=== PATIENT | female | born 1955 | race Caucasian/White ===

== ENCOUNTER 2021-12-14 11:56 | Emergency (ER) | payer MEDICARE, SELFPAY ==
[2021-12-14 12:00] VITALS: BP 135/60; PULSE 65; RESP 20; TEMP 36.3; O2SAT 99
--- NOTE | 2021-12-14 12:30 | DI.CT_ITS ---
Exam(s) CT HEAD WO EXAM: CT HEAD WO CLINICAL HISTORY: fall, hit head, on eliquis. TECHNIQUE: Imaging Protocol: Axial computed tomography images with coronal and sagittal reformatted images were created and reviewed COMPARISON: No exams were available for comparison FINDINGS: Ventricles and Extra axial spaces: Normal in size and morphology for the patient's age. Hemorrhage: None. Cerebral parenchyma: Normal. Midline shift: None. Brainstem/Cerebellum: Normal. Calvarium: Normal. Visualized Paranasal sinuses/Mastoids: Mild ethmoid sinus disease. Soft Tissues: Unremarkable. IMPRESSION: No acute intracranial process. RADIATION DOSE DELIVERED: 771.66mGy.cm Total DLP DATA REPOSITORY: All CT scans at this facility are submitted to the National Radiology Data Registry (NRDR) Dose Index Registry (DIR) with the [employer] ([employer]). RADIATION OPTIMIZATION: All CT scans at this facility use at least one of these dose optimization te chniques: automated exposure control; mA and/or kV adjustment per patient size (includes targeted exa ms where dose is matched to clinical indication); or iterative reconstruction.
--- NOTE | 2021-12-14 12:30 | DI.RAD_ITS ---
Exam(s) XR SHOULDER RT COMPLETE 2+V EXAM: XR SHOULDER RT COMPLETE 2+V CLINICAL HISTORY: fall/pain. TECHNIQUE: 2D digital imaging was performed. Five views. COMPARISON: CR RIGHT SHOULDER COMPLETE from 08/26/2010 FINDINGS: BONES: No acute fracture is present. No bony destructive lesion is seen. Sternal wires. JOINTS: No dislocation present. Prominent spurring AC joint and undersurface of the acromion. Degen erative changes of the glenohumeral joint. SOFT TISSUE: Normal. IMPRESSION: Degenerative changes. DATA REPOSITORY: RADIATION DOSE DELIVERED:
[2021-12-14] MEDS: HYDROcodone 5/Acetaminophen 325 TAB PO (12:40)
--- NOTE | 2021-12-14 13:15 | ED.GENADUL_ITS ---
Discharge Plan Disposition Patient Disposition: HOME Condition: Stable Discharge Details Clinical Impression: Right shoulder pain, Fall, Head injury Primary Care Provider: Emely Grayson ED Provider: Steven Martinez Home Meds and New Rx's Prescriptions: Continued metoprolol succinate 200 mg Tablet Extended Release 24 Hr 200 mg PO DAILY insulin aspart U-100 [Novolog Flexpen U-100 Insulin] 100 unit/mL (3 mL) Insulin Pen 1 unit SUBCUT PRN PRN hydrocodone-acetaminophen 10-300 mg Tablet 1 tab PRN PRN insulin glargine 100 unit/mL Cartridge 42 unit SUBCUT BID vit D3-vit A-yyohnvdyg-idom [id number] ohcb-omy-sz-mg Tablet 1 tab PO DAILY loratadine 10 mg Capsule 10 mg DAILY Eliquis 5 mg Tablet 5 mg BID Discharge Instructions Instructions: Head Injury (ED), Fall Prevention (ED), Shoulder Pain (ED) Additional Instructions: X-ray and CT are both unremarkable. Take your at home already prescribed hydrocodone, remember this medication may cause drowsiness and/or constipation. You may want to use [id number]-azr-srgxbyg stool softener while taking this medication. Wear sling as needed, advance activity as tolerated, be sure to do passive range of motion at least 4 times daily to avoid a frozen shoulder. Cool and/or warm compresses every 2 hours for 20 minutes. Please watch for new or worsening symptoms and return to the ER for any concerns. I recommend contacting the orthopedic team on Friday if conservative measures are not improving your shoulder. Otherwise contact your primary care provider for prompt outpatient follow-up. Referrals: Wayne Devries MD [ [facility] STAFF PHYSICIAN] - Medical Decision Making This is a 66-year-old female, takes Eliquis daily, presents for evaluation status post mechanical slip and fall when the wheel from her walker broke. She fell from the sitting position down onto her right shoulder and struck her head along the foot railing of the truck. She denies any LOC, headache, visual changes, posterior neck pain. She denies any symptoms prior to the fall. She denies any chest pain, shortness of breath, incontinence, numbness, tingling, weakness, nausea or vomiting. Patient states that she is right-hand dominant. Plan is to obtain a right shoulder x-ray as well as a head CT. Patient will be given a single hydrocodone. Tetanus status is updated. Will clean and dress the right elbow abrasion. Head CT and right shoulder x-ray read by radiology as no acute process. Discussed x-ray results with patient. Will place into a sling and we discussed the importance of passive range of motion. She has a prescription for hydrocodone at home. We will provide orthopedic referral. Standard discharge and return precautions were provided. Patient understands, is agreeable to this plan, and has no additional questions or concerns upon discharge. This documentation was generated using [employer] system, please disregard any oddities of phrase or misspellings. Medical Records Medical records reviewed: Yes I reviewed the patient's medical records. Imaging Data Radiologic Study: Attestation: I personally reviewed and interpreted this imaging study as mohinder rocha: Imaging: CT Scan Radiologist's impression: This report is currently processing and HAS NOT BEEN OFFICIALLY SIGNED BY THE PHYSICIAN - ESTIMATED TIME OF APPROVAL IS 12/14/2021 13:28. Exam(s) CT HEAD WO EXAM: CT HEAD WO CLINICAL HISTORY: fall, hit head, on eliquis. TECHNIQUE: Imaging Protocol: Axial computed tomography images with coronal and sagittal reformatted images were created and reviewed COMPARISON: No exams were available for comparison FINDINGS: Ventricles and Extra axial spaces: Normal in size and morphology for the patient's age. Hemorrhage: None. Cerebral parenchyma: Normal. Midline shift: None. Brainstem/Cerebellum: Normal. Calvarium: Normal. Visualized Paranasal sinuses/Mastoids: Mild ethmoid sinus disease. Soft Tissues: Unremarkable. IMPRESSION: No acute intracranial process. Radiologic Study #2: Attestation: I personally reviewed and interpreted this imaging study as follows: Imaging: X-Ray Radiologist's impression: This report is currently processing and HAS NOT BEEN OFFICIALLY SIGNED BY THE PHYSICIAN - ESTIMATED TIME OF APPROVAL IS 12/14/2021 13:36. Exam(s) XR SHOULDER RT COMPLETE 2+V EXAM: XR SHOULDER RT COMPLETE 2+V CLINICAL HISTORY: fall/pain. TECHNIQUE: 2D digital imaging was performed. Five views. COMPARISON: CR RIGHT SHOULDER COMPLETE from 08/26/2010 FINDINGS: BONES: No acute fracture is present. No bony destructive lesion is seen. Sternal wires. JOINTS: No dislocation present. Prominent spurring AC joint and undersurface of the acromion. Degenerative changes of the glenohumeral joint. SOFT TISSUE: Normal. IMPRESSION: Degenerative changes. HPI General Mode of arrival: EMS . Date/Time Provider Initiated Documentation: 12/14/21 12:13 . Limitations to Documentation: no limitations . Information obtained by: patient and EMS . History of Present Illness 66 year old F presents to the emergency department with the chief complaint of fall, R shoulder injury, hit head, described as severe, with intensity rated at 8. Quality is described as aching, and is localized to the right and upper extremity. Patient reports no radiation. Patient started experiencing this hour(s) (1) and it has been constant. Immobilization improves symptom(s), Immoblization worsens symptoms . Patient notes no other symptoms.. Patient did receive the following treatments prior to arrival, none Related Data Home Medications Medication Instructions Recorded Confirmed apixaban 5 mg tablet (Eliquis) 5 mg BID 12/14/21 12/14/21 hydrocodone 10 mg-acetaminophen 1 tab PRN PRN 12/14/21 12/14/21 300 mg tablet insulin aspart U-100 100 unit/mL 1 unit subcut PRN PRN 12/14/21 12/14/21 (3 mL) subcutaneous pen (Novolog Flexpen U-100 Insulin aspart) insulin glargine 100 unit/mL 42 unit subcut BID 12/14/21 12/14/21 subcutaneous cartridge loratadine 10 mg capsule 10 mg DAILY 12/14/21 12/14/21 metoprolol succinate 200 mg 200 mg PO DAILY 12/14/21 12/14/21 tablet,extended release 24 hr vitamin D3 500 unit-vit K 500 1 tab PO DAILY 12/14/21 12/14/21 mcg-berberine 90 mg-hops 370 mg tablet Allergies Allergy/AdvReac Type Severity Reaction Status Date / Time No Known Allergies Allergy Unverified 12/14/21 14:26 General Stated Complaint: Orthopedic GABE: 3 Review of Systems Constitutional Constitutional: Denies fever(s), Denies headache(s) and Denies weakness ENT Ears, Nose, Mouth, and Throat: Denies headache(s) and Denies neck pain Comments: Patient reports she did at 1 point had some mild right-sided neck pain, resolved Cardiovascular Cardiovascular: Denies chest pain and Denies dyspnea Respiratory Respiratory: Denies cough and Denies dyspnea Gastrointestinal Gastrointestinal: Denies abdominal pain, Denies nausea and Denies vomiting Musculoskeletal Musculoskeletal: Denies back pain, Denies deformity, Denies neck pain, Denies numbness, Reports stiffness and Denies tingling Integumentary/Breasts Skin/Breast: Denies rash Neurologic Neurologic: Denies headache(s), Denies numbness, Denies tingling and Denies weakness Hematologic/Lymphatic Hematologic/Lymphatic: Reports easy bleeding and Reports easy bruising PFSH All Active Problems Right shoulder pain (Acute) Fall (Acute) Head injury (Acute) Social History Smoking/Tobacco Use Status: Never Smoking risk assessment performed?: Yes Alcohol Intake: never Substance use type: does not use Exam Const General: cooperative, healthy appearing, comfortable and no acute distress Orientation: alert, awake and oriented x3 HENMT Head: normal to inspection, normocephalic and atraumatic Face and sinus: normal facial exam Mouth: moist mucous membranes Eyes General: appearance normal, both eyes and all related structures Conjunctivae: conjunctivae normal Neck Neck: normal visual inspection, full ROM, trachea midline, supple and nontender Chest Chest: normal inspection of the chest and normal palpation of entire chest wall Resp Effort & Inspection: normal respiratory effort and able to speak in complete sentences Auscultation: clear to auscultation bilaterally Cardio Rate: regular rate Rhythm: regular rhythm GI Palpation: soft and nontender Back/Spine/Pelvis Back: No back tenderness Skin General skin exam: no rashes or lesions noted Neuro General: patient alert, patient awake, patient oriented x3, moves all extremities and no focal motor deficits Cognition: normal cognition Speech: speech normal Gait: normal gait Motor: muscle tone normal throughout Sensory Exam: no sensory deficits noted Extrem General: capillary refill normal and no calf tenderness Other: Right posterior elbow with an abrasion, no active bleeding or bony point tenderness. 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 Right shoulder-arm held in adduction. There is diffuse anterior and superior shoulder discomfort without any obvious ecchymosis, deformity, bony point tenderness. Neuro, vascular, tendon intact. Psych Appearance: grossly normal Mental Status: mental status grossly normal Course Vital Signs Vital signs: Vital Signs Temperature 36.3 C L 12/14/21 12:00 Pulse 65 12/14/21 12:00 Respiratory Rate 20 12/14/21 12:00 Blood Pressure 135/60 12/14/21 12:00 Pulse Oximetry 99 12/14/21 12:00 Temperature 36.3 C L 12/14/21 12:00 Temperature Source Skin 12/14/21 12:00 Pulse 65 12/14/21 12:00 Respiratory Rate 20 12/14/21 12:00 Respiratory Effort 12/14/21 12:10 Blood Pressure 135/60 12/14/21 12:00 Blood Pressure Position Sitting 12/14/21 12:00 Pulse Oximetry 99 12/14/21 12:00 Oxygen Delivery Method Room Air 12/14/21 12:00 Oxygen Flow Rate 0 12/14/21 12:00 Pain Level 8 12/14/21 12:00
== END 2021-12-14 15:56 | disposition home or self-care (01) ==
LOC: ER 15:56
PROVIDERS: Emergency Provider Physician Assistant; PCP Family Medicine
DX: M25.511 Pain in right shoulder (principal); S09.8XXA Other specified injuries of head, initial encounter; W18.39XA Other fall on same level, initial encounter; Z79.01 Long term (current) use of anticoagulants
CPT/HCPCS: 90471; 99284; 70450; 73030; 99283

== ENCOUNTER 2025-05-09 19:58 | Emergency (ER) | payer MEDICARE, SELFPAY ==
[2025-05-09 19:59] VITALS: BP 122/77; PULSE 95; RESP 18; TEMP 36.9; O2SAT 95
--- NOTE | 2025-05-09 20:12 | NUR.NOTE ---
Nursing Note: Friday was bitten by personal dog. 3 sutures placed, Was told to change dressing every other day. Increased pain, warmth, and swelling to left hand. 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
--- NOTE | 2025-05-09 20:15 | DI.RAD_ITS ---
Exam(s) XR WRIST LT COMPLETE EXAM: XR WRIST LT COMPLETE CLINICAL HISTORY: infected dog bite. TECHNIQUE: 2D digital imaging was performed of the left wrist. Four images were obtained. PA, oblique and lateral views were obtained. COMPARISON: No exams were available for comparison FINDINGS: BONES: No acute fracture is present. No bony destructive lesion is seen. Bones are osteopenic. JOINTS: The carpal bones are normally aligned. There are marked degenerative changes seen at the 1st CMC joint characterized by joint space narrowing and osteophytes. SOFT TISSUE: There is no soft tissue gas. There is chondrocalcinosis seen in the region of the TFCC. IMPRESSION: 1. No radiographic evidence to suggest osteomyelitis. 2. There is no acute fracture or dislocation. 3. The preliminary [facility] report was reviewed. DATA REPOSITORY: RADIATION DOSE DELIVERED:
[2025-05-09 20:48] LABS: Abs Immature Grans 0.11 10^3/uL (0.0-0.06); HCT 42.0 % (36.0-46.0); HGB 13.8 g/dL (11.2-15.7); Immature Grans % 1.0 %; MCH 30.1 pg (27.0-33.0); MCHC 32.9 % (32.0-36.0); MCV 92 fL (80-95); MPV 10.9 fL (8.0-11.0); Platelet Count 203 10^3/uL (130-400); RBC 4.59 10^6/uL (3.93-5.22); RDW 14.8 % (11.7-14.6); RDW-SD 48.8 fL; WBC 11.34 10^3/uL (4.4-10.8)
[2025-05-09 20:49] LABS: ESR 76 mm/hr (0-30)
[2025-05-09 21:03] LABS: ALT 16 U/L (14-59); AST 12 U/L (15-37); Albumin 3.2 g/dL (3.4-5.0); Alkaline Phosphatase 154 U/L (46-116); Anion Gap 23.2 mmol/L (3-11); BUN 22 mg/dL (7-18); Bilirubin, Total 1.0 mg/dL (0.2-1.0); C-Reactive Protein 7.29 mg/dL (<or=0.5); CO2 18.8 mmol/L (21.0-32.0); Calcium 9.4 mg/dL (8.5-10.1); Chloride 95 mmol/L (98-107); Estimated GFR 69.20 (mL/min/1.73m2); Glucose 298 mg/dL (74-106); Magnesium 2.3 mg/dL (1.8-2.4); Potassium 4.6 mmol/L (3.5-5.1); Sodium 137 mmol/L (136-145); Total Protein 8.0 g/dL (6.4-8.2)
[2025-05-09] MEDS: AMPICILLIN/SULBACTAM 3 GM in Normal Saline 100 ML IVPB (21:07)
[2025-05-09] MEDS: Acetaminophen 325 MG TAB PO (21:07)
[2025-05-09] MEDS: HYDROcodone 5/Acetaminophen 325 TAB PO (21:07)
--- NOTE | 2025-05-09 21:35 | W.ED.GENAD ---
Discharge Plan Disposition Patient Disposition: Home Condition: Stable Discharge Details Clinical Impression: Infected dog bite of forearm Primary Care Provider: Jennyfer Santos ED Provider: Corrine Gan Home Meds and New Rx's Prescriptions: New amoxicillin-pot clavulanate 875-125 mg tablet 1 tab PO BID 5 Days Qty: 10 0RF No Action guaifenesin [Mucinex] 600 mg tablet extended release 12hr 600 mg PO BID hydrocodone-acetaminophen 10-300 mg tablet 1 tab PO QID PRN insulin aspart U-100 [Novolog FlexPen U-100 Insulin] 100 unit/mL (3 mL) insulin pen 8 - 22 unit SUBCUT .sliding scale metoprolol succinate 200 mg tablet extended release 24 hr 100 mg PO DAILY fluticasone propion-salmeterol [Advair HFA] 230-21 mcg/actuation HFA aerosol inhaler 2 puff inhalation Q12H albuterol sulfate 2.5 mg /3 mL (0.083 %) solution for nebulization 2.5 mg inhalation Q6H PRN cholecalciferol (vitamin D3) 1,250 mcg (50,000 unit) capsule 1,250 mcg PO .twice a week clotrimazole 1 % cream 1 applic topical BID PRN multivitamin [One Daily Multivitamin] Tablet 1 tab PO DAILY ezetimibe 10 mg tablet 10 mg PO DAILY fluconazole 150 mg tablet 150 mg PO .once weekly ipratropium-albuterol 0.5 mg-3 mg(2.5 mg base)/3 mL solution for nebulization 3 ml inhalation QID Jardiance 25 mg tablet 25 mg PO DAILY magnesium L-lactate 84 mg tablet extended release 84 mg PO BID nitroglycerin 0.4 mg tablet, sublingual 0.4 mg sublingual Q5M PRN Rx Instructions: do not exceed 3 doses per episode albuterol sulfate [Ventolin HFA] 90 mcg/actuation HFA aerosol inhaler 1 - 2 puff inhalation QID PRN fluticasone propionate 50 mcg/actuation spray,suspension 1 spray intranasal DAILY PRN Rx Instructions: administer into each nostril furosemide 20 mg tablet 40 mg PO DAILY PRN Eliquis 5 mg Tablet 5 mg BID insulin glargine 100 unit/mL cartridge 42 unit SUBCUT BID Discharge Instructions Instructions: Wound Infection Additional Instructions: You were seen in the emergency department today for evaluation of an infection and the dog bite that you sustained a few days ago. In our department you do full physical examination performed, had laboratory studies were fairly reassuring, though your inflammatory markers are elevated which is consistent with infection. Your x-ray did not show any concerning findings though you do have some osteoarthritis of your thumb. You received a dose of intravenous antibiotics and we reviewed your case with the orthopedic doctor. It is reasonable to give the oral antibiotics a shot to work. You will take your next dose when you wake up in the morning, and take it twice a day for a total of 10 days. I sent a prescription to your pharmacy, please use this medication as well as the bottle that you got from [facility], and take all of it until it is gone, even if you start to feel better. Please keep the wound clean and dry, and change the dressing once per day, or when it gets soiled. You can use topical antibiotic ointment over those areas of bite, and can use Tylenol and your hydrocodone for management of pain. You will be contacted by phone if your blood cultures are positive, which would require you to return to the hospital. Otherwise, please monitor the wound for the next 24 to 48 hours. If you notice worsening of the redness, swelling, or streaking up your arm, or if you develop a fever or have any difficulty at all obtaining the rest of your antibiotics, you can always return to care. Please follow-up with your primary care provider in the next few days to discuss this visit and any symptoms that change, worsen, or persist. Thank you for allowing us to be part of your care. HPI General Mode of arrival: ambulatory. Date/Time Provider Initiated Documentation: 05/09/25 20:07. Limitations to Documentation: no limitations. Information obtained by: patient and old records reviewed. HPI Narrative: This is a 69-year-old female patient presenting for evaluation of an infected dog bite. The patient was bit by her own dog on Friday while attempting to separate the dog from another animal with which she was fighting. She sustained a bite to the left distal forearm. She was seen at [facility] at that time, had sutures placed and was started on Augmentin. She did receive a single dose there at that hospital. She was unable to get the medication until today, and it is only taken 1 additional dose. She has noted worsening redness, swelling, and drainage from around the sutures. She is having significant pain in that left wrist and is difficult to move from [id number]. She denies fever or chills, this is an isolated injury, and the patient reports that her tetanus is up-to-date. Related Data Home Medications ?Medication ?Instructions ?Recorded ?Confirmed apixaban 5 mg tablet (Eliquis) 5 mg BID 12/14/21 03/30/24 albuterol sulfate 2.5 mg/3 mL 2.5 mg inhalation Q6H PRN 11/04/23 05/09/25 (0.083 %) solution for nebulization albuterol sulfate 90 mcg/actuation 1 - 2 puff inhalation QID PRN 11/04/23 05/09/25 aerosol inhaler (Ventolin HFA) cholecalciferol (vitamin D3) 1,250 1,250 mcg PO .twice a week 11/04/23 05/09/25 mcg (50,000 unit) capsule clotrimazole 1 % topical cream 1 applic topical BID PRN 11/04/23 05/09/25 empagliflozin 25 mg tablet 25 mg PO DAILY 11/04/23 05/09/25 (Jardiance) ezetimibe 10 mg tablet 10 mg PO DAILY 11/04/23 05/09/25 fluconazole 150 mg tablet 150 mg PO .once weekly 11/04/23 05/09/25 fluticasone propionate 230 2 puff inhalation Q12H 11/04/23 05/09/25 mcg-salmeterol 21 mcg/actuation HFA inhaler (Advair HFA) hydrocodone 10 mg-acetaminophen 1 tab PO QID PRN 11/04/23 05/09/25 300 mg tablet insulin aspart U-100 100 unit/mL 8 - 22 unit subcut .sliding scale 11/04/23 05/09/25 (3 mL) subcutaneous pen (Novolog FlexPen U-100 Insulin aspart) ipratropium 0.5 mg-albuterol 3 mg 3 ml inhalation QID 11/04/23 05/09/25 (2.5 mg base)/3 mL nebulization soln magnesium L-lactate 84 mg 84 mg PO BID 11/04/23 05/09/25 tablet,extended release metoprolol succinate 200 mg 100 mg PO DAILY 11/04/23 05/09/25 tablet,extended release 24 hr multivitamin (One Daily 1 tab PO DAILY 11/04/23 05/09/25 Multivitamin tablet) nitroglycerin 0.4 mg sublingual 0.4 mg sublingual Q5M PRN 11/04/23 05/09/25 tablet fluticasone propionate 50 1 spray intranasal DAILY PRN 12/30/23 05/09/25 mcg/actuation nasal spray,suspension furosemide 20 mg tablet 40 mg PO DAILY PRN 12/30/23 05/09/25 guaifenesin 600 mg tablet, 600 mg PO BID 12/30/23 05/09/25 extended release 12 hr (Mucinex) insulin glargine 100 unit/mL 42 unit subcut BID 03/30/24 05/09/25 subcutaneous cartridge amoxicillin 875 mg-potassium 1 tab PO BID 5 days #10 tabs 05/09/25 clavulanate 125 mg tablet Previous Rx's ?Medication ?Instructions ?Recorded amoxicillin 875 mg-potassium 1 tab PO BID 5 days #10 tabs 05/09/25 clavulanate 125 mg tablet Allergies Allergy/AdvReac Type Severity Reaction Status Date / Time cat dander Allergy Severe unknown Unverified 05/09/25 20:04 cigarette smoke Allergy Severe unknown Unverified 05/09/25 20:04 grass pollen Allergy Severe unknown Unverified 05/09/25 20:04 house dust mite Allergy Severe unknown Unverified 05/09/25 20:04 perfume Allergy Severe unknown Unverified 05/09/25 20:04 duloxetine (From Cymbalta) Allergy Intermediate unknown Unverified 05/09/25 20:04 feathers Allergy Unknown Verified 05/09/25 20:04 mold Allergy unknown Verified 05/09/25 20:04 dust mites Allergy Unknown Uncoded 05/09/25 20:04 General Stated Complaint: Recheck GABE: 3 Exam Narrative Exam Narrative: Gen: Awake and alert, in no apparent distress HEENT: Non-icteric sclera Neck: Supple Lungs: No apparent respiratory distress, normal respiratory effort. CV: Appears well perfused, strong distal pulses Abdomen: Non-distended MSK: Moves 4 extremities without apparent limitation in ROM with the exception of the left upper extremity. She has reproduction of pain and some stiffness with ulnar deviation, does have redness, induration, and swelling as noted in the photos below. She has [address] on the radial aspect and 1 on the ulnar aspect she has pain with range of motion but no paralysis or numbness distal to this injury. Skin: Visualized skin without rashes, cyanosis. Neuro: Normal Gait, no obvious focal deficits or facial asymmetry. Speaks in full, clear sentences. Psych: Appropriate for situation. Course Vital Signs Vital signs: Vital Signs Temperature 36.9 C 05/09/25 19:59 Pulse 95 H 05/09/25 19:59 Respiratory Rate 18 05/09/25 19:59 Blood Pressure 122/77 05/09/25 19:59 Pulse Oximetry 95 05/09/25 19:59 Temperature 36.9 C 05/09/25 19:59 Pulse 95 H 05/09/25 19:59 Respiratory Rate 18 05/09/25 19:59 Blood Pressure 122/77 05/09/25 19:59 Pulse Oximetry 95 05/09/25 19:59 Oxygen Delivery Method Room Air 05/09/25 19:59 Oxygen Flow Rate 0 05/09/25 19:59 Pain Level 7 05/09/25 21:07 Lab/Test Results Lab/Test Results: 05/09/25 20:36 Blood Blood Culture - Pending 05/09/25 20:30 Blood Blood Culture - Pending Laboratory Tests Range/Units 05/09/25 20:30 WBC (4.4-10.8) 10^3/uL 11.34 H RBC (3.93-5.22) 10^6/uL 4.59 Hgb (11.2-15.7) g/dL 13.8 Hct (36.0-46.0) % 42.0 MCV (80-95) fL 92 MCH (27.0-33.0) pg 30.1 MCHC (32.0-36.0) % 32.9 RDW (11.7-14.6) % 14.8 H Plt Count (130-400) 10^3/uL 203 MPV (8.0-11.0) fL 10.9 Immature Gran % % 1.0 Neutrophils % % 85.5 Lymphocytes % % 11.0 Monocytes % % 1.9 Eosinophils % % 0.1 Basophils % % 0.5 Nucleated RBC % (0.0-0.3) % 0.0 Absolute Neutrophils (1.2-6.7) 10^3/uL 9.70 H Absolute Lymphocytes (1.2-3.4) 10^3/uL 1.25 Absolute Monocytes (0.1-0.8) 10^3/uL 0.22 Absolute Eosinophils (0.0-0.7) 10^3/uL 0.01 Absolute Basophils (0.0-0.2) 10^3/uL 0.06 ESR (0-30) mm/hr 76 H Sodium (136-145) mmol/L 137 Potassium (3.5-5.1) mmol/L 4.6 Chloride (98-107) mmol/L 95 L Carbon Dioxide (21.0-32.0) mmol/L 18.8 L Anion Gap (3-11) mmol/L 23.2 H BUN (7-18) mg/dL 22 H Creatinine (0.55-1.02) mg/dL 0.9 Est GFR (CKD-EPI 2020) (mL/min/1.73m2) 69.20 Glucose (74-106) mg/dL 298 H Calcium (8.5-10.1) mg/dL 9.4 Magnesium (1.8-2.4) mg/dL 2.3 Total Bilirubin (0.2-1.0) mg/dL 1.0 AST (15-37) U/L 12 L ALT (14-59) U/L 16 Alkaline Phosphatase (46-116) U/L 154 H C-Reactive Protein (<or=0.5) mg/dL 7.29 H Total Protein (6.4-8.2) g/dL 8.0 Albumin (3.4-5.0) g/dL 3.2 L Medical Decision Making This is a 69-year-old female patient presenting for evaluation after dog bite. Differential includes but is not limited to infected dog bite, certainly considered sepsis and bacteremia, foreign body, tendon and joint involvement. We will obtain labs to include CBC, CMP, magnesium, inflammatory markers, and blood cultures. I will obtain an x-ray and provide the patient with a dose of Unasyn. I provided her with a dose of her home hydrocodone as well as some Tylenol for pain management. -I reviewed the patient's laboratory studies, which show a very mild leukocytosis to 11.3 with no anemia or thrombocytopenia. Chemistry panel is without electrolyte derangement, evidence of significant kidney dysfunction or liver pathology. Her CRP and ESR are slightly elevated consistent with her infection. X-ray reviewed by myself, does show which is degenerative changes of the first CMC joint, no foreign bodies or periosteal reaction. I discussed the case with Dr. Devries of orthopedic surgery, who reviewed the images and clinical data. He states that he does not feel that this requires emergent washout, states that it would be reasonable given the lack of antibiosis in the outpatient environment to trial oral antibiotics now that she has been loaded with an IV dose. She reports that she feels like she could get back to the hospital if she needed to for positive blood cultures or worsening of her infection. She was previously given 5 days worth of Augmentin from [facility], and has these medications in hand. We did remove the sutures to allow the wounds to drain. She had dressing changes performed and received dressing equipment to continue to care for the wound appropriately at home. An additional 5 days of Augmentin for a total of 10 was sent to her preferred pharmacy. At this time, the patient has had a full medical evaluation and is safe for discharge to home. They are hemodynamically stable, ambulatory, and tolerating PO. They are understanding of the follow-up plan and return precautions. They left our facility without incident. Corrine Gan MD [facility] All Active Problems (Updated 05/09/25 @ 22:26 by Corrine Gan MD) Infected dog bite of forearm (Acute) Presbylarynges (Acute) Hoarseness (Acute) Dysphonia (Acute) Medical History Post-acute COVID-19 syndrome Abdominal pain Snoring Dyspnea Edema Memory impairment Disorder of rotator cuff Disorder of intervertebral disc of lumbar spine Low back pain Neck pain Osteoarthritis of knee Osteoarthritis of hip GERD (gastroesophageal reflux disease) Severe persistent asthma Allergic rhinitis Atrial flutter Atrial fibrillation Hypertensive disorder Chronic pain syndrome Depressive disorder PTSD (post-traumatic stress disorder) Acute stress disorder Anxiety disorder Morbid obesity Hypercholesterolemia Vitamin D deficiency Diabetic peripheral neuropathy Type II diabetes mellitus Surgical History H/O foot surgery right 1982 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
--- NOTE | 2025-05-09 22:18 | DI.VRAD_ITS ---
PROCEDURE INFORMATION: Exam: XR Left Wrist Exam date and time: 05/09/2025 8:58 PM Age: 69 years old Clinical indication: Injury or trauma; Other: Dog bite recheck; Wrist; Left; Injury date: 05/06/25 TECHNIQUE: Imaging protocol: Radiologic exam of the left wrist. Views: 3 or more views. COMPARISON: No relevant prior studies available. FINDINGS: Bones/joints: Degenerative changes at the 1st carpometacarpal joint consistent with osteoarthritis. Chondrocalcinosis at the ulnocarpal articulation. There is generalized osteopenia There is no evidence of fracture. No evidence of dislocation. The joint spaces are adequately preserved; no significant degenerative narrowing and no bony erosion seen. Soft tissues: No radiopaque foreign body present. There is soft tissue swelling present. IMPRESSION: 1. No acute osseous abnormality. 2. There is soft tissue swelling present. Dictated and Authenticated by: Tacho Rangel MD. [facility] [place] MD
[2025-05-09 22:39] VITALS: BP 134/79; PULSE 89; RESP 18; O2SAT 96
[2025-05-09 23:09] VITALS: BP 134/79; PULSE 89; RESP 18; O2SAT 96
== END 2025-05-09 23:35 | disposition home or self-care (01) ==
PROVIDERS: Emergency Provider Emergency Medicine; PCP Nurse Practitioner Adult Health
DX: S51.852A Open bite of left forearm, initial encounter (principal); W54.0XXA Bitten by dog, initial encounter
CPT/HCPCS: 80053; 85652; 87040; 96365; 99284; 73110; 83735; 85025; 86140; J0295

== ENCOUNTER 2025-05-13 17:56 | Emergency (ER) | payer MEDICARE, SELFPAY ==
[2025-05-13 17:58] VITALS: BP 139/67; PULSE 94; RESP 18; TEMP 36.2; O2SAT 96
--- NOTE | 2025-05-13 17:59 | W.ED.GENAD ---
Discharge Plan Disposition Patient Disposition: Home Condition: Good Discharge Details Clinical Impression: Urinary incontinence, Dysuria Primary Care Provider: Jennyfer Santos ED Provider: Yobani Thrasher Meds and New Rx's Prescriptions: New phenazopyridine [Pyridium] 100 mg tablet 100 mg PO TID PRNQty: 6 0RF Continued guaifenesin [Mucinex] 600 mg tablet extended release 12hr 600 mg PO BID hydrocodone-acetaminophen 10-300 mg tablet 1 tab PO QID PRN insulin aspart U-100 [Novolog FlexPen U-100 Insulin] 100 unit/mL (3 mL) insulin pen 8 - 22 unit SUBCUT .sliding scale metoprolol succinate 200 mg tablet extended release 24 hr 100 mg PO DAILY fluticasone propion-salmeterol [Advair HFA] 230-21 mcg/actuation HFA aerosol inhaler 2 puff inhalation Q12H albuterol sulfate 2.5 mg /3 mL (0.083 %) solution for nebulization 2.5 mg inhalation Q6H PRN cholecalciferol (vitamin D3) 1,250 mcg (50,000 unit) capsule 1,250 mcg PO .twice a week clotrimazole 1 % cream 1 applic topical BID PRN multivitamin [One Daily Multivitamin] Tablet 1 tab PO DAILY ezetimibe 10 mg tablet 10 mg PO DAILY fluconazole 150 mg tablet 150 mg PO .once weekly ipratropium-albuterol 0.5 mg-3 mg(2.5 mg base)/3 mL solution for nebulization 3 ml inhalation QID Jardiance 25 mg tablet 25 mg PO DAILY magnesium L-lactate 84 mg tablet extended release 84 mg PO BID nitroglycerin 0.4 mg tablet, sublingual 0.4 mg sublingual Q5M PRN Rx Instructions: do not exceed 3 doses per episode albuterol sulfate [Ventolin HFA] 90 mcg/actuation HFA aerosol inhaler 1 - 2 puff inhalation QID PRN fluticasone propionate 50 mcg/actuation spray,suspension 1 spray intranasal DAILY PRN Rx Instructions: administer into each nostril furosemide 20 mg tablet 40 mg PO DAILY PRN Eliquis 5 mg Tablet 5 mg BID insulin glargine 100 unit/mL cartridge 42 unit SUBCUT BID amoxicillin-pot clavulanate 875-125 mg tablet 1 tab PO BID 5 Days Qty: 10 0RF Discharge Instructions Additional Instructions: You were seen in the ED for urinary pain, frequency and incontinence. Your exam overall is reassuring and your urine from today is not infected. Labs from the showed normal kidney function. We will try Pyridium to help with the pain and frequency over the weekend to see if this helps at all. You should follow-up with your primary care on Friday as planned. You may benefit from a urology referral given the incontinence that is occurring now as this may be potentially related to a pelvic floor problem. Return to ED for any fever, persistent worsening pain, vomiting, other concerns. HPI General Mode of arrival: EMS. Date/Time Provider Initiated Documentation: 05/13/25 17:58. Limitations to Documentation: no limitations. Information obtained by: patient, RN notes reviewed and old records reviewed. HPI Narrative: Patient presents to ED with complaint of dysuria, urgency, incontinence. Patient reports abdominal pain that is suprapubic in nature radiates out toward the sides but only occurs when she is urinating. She reports that 3 to 4 months ago she began having suprapubic pain that radiated down towards the vagina with urination. She has no pain with bowel movements. She is having no vomiting or diarrhea. She has no pain at rest. She denies any back pain. She denies any fever. Over the last 24 hours pain has been more intense. She is having some urinary incontinence that occurs when she tries to get up to go to the bathroom. She is not having any back pain, numbness, weakness. She reports no change in perineal sensation. She is having no bowel problems. She is currently on Augmentin for a dog bite which became infected. She reports that this is looking much better. Related Data Home Medications ?Medication ?Instructions ?Recorded ?Confirmed apixaban 5 mg tablet (Eliquis) 5 mg BID 12/14/21 03/30/24 albuterol sulfate 2.5 mg/3 mL 2.5 mg inhalation Q6H PRN 11/04/23 05/13/25 (0.083 %) solution for nebulization albuterol sulfate 90 mcg/actuation 1 - 2 puff inhalation QID PRN 11/04/23 05/13/25 aerosol inhaler (Ventolin HFA) cholecalciferol (vitamin D3) 1,250 1,250 mcg PO .twice a week 11/04/23 05/13/25 mcg (50,000 unit) capsule clotrimazole 1 % topical cream 1 applic topical BID PRN 11/04/23 05/13/25 empagliflozin 25 mg tablet 25 mg PO DAILY 11/04/23 05/13/25 (Jardiance) ezetimibe 10 mg tablet 10 mg PO DAILY 11/04/23 05/13/25 fluconazole 150 mg tablet 150 mg PO .once weekly 11/04/23 05/13/25 fluticasone propionate 230 2 puff inhalation Q12H 11/04/23 05/13/25 mcg-salmeterol 21 mcg/actuation HFA inhaler (Advair HFA) hydrocodone 10 mg-acetaminophen 1 tab PO QID PRN 11/04/23 05/13/25 300 mg tablet insulin aspart U-100 100 unit/mL 8 - 22 unit subcut .sliding scale 11/04/23 05/13/25 (3 mL) subcutaneous pen (Novolog FlexPen U-100 Insulin aspart) ipratropium 0.5 mg-albuterol 3 mg 3 ml inhalation QID 11/04/23 05/13/25 (2.5 mg base)/3 mL nebulization soln magnesium L-lactate 84 mg 84 mg PO BID 11/04/23 05/13/25 tablet,extended release metoprolol succinate 200 mg 100 mg PO DAILY 11/04/23 05/13/25 tablet,extended release 24 hr multivitamin (One Daily 1 tab PO DAILY 11/04/23 05/13/25 Multivitamin tablet) nitroglycerin 0.4 mg sublingual 0.4 mg sublingual Q5M PRN 11/04/23 05/13/25 tablet fluticasone propionate 50 1 spray intranasal DAILY PRN 12/30/23 05/13/25 mcg/actuation nasal spray,suspension furosemide 20 mg tablet 40 mg PO DAILY PRN 12/30/23 05/13/25 guaifenesin 600 mg tablet, 600 mg PO BID 12/30/23 05/13/25 extended release 12 hr (Mucinex) insulin glargine 100 unit/mL 42 unit subcut BID 03/30/24 05/13/25 subcutaneous cartridge amoxicillin 875 mg-potassium 1 tab PO BID 5 days #10 tabs 05/09/25 05/13/25 clavulanate 125 mg tablet phenazopyridine 100 mg tablet 100 mg PO TID PRN 6 doses #6 tabs 05/13/25 (Pyridium) Previous Rx's ?Medication ?Instructions ?Recorded amoxicillin 875 mg-potassium 1 tab PO BID 5 days #10 tabs 05/09/25 clavulanate 125 mg tablet phenazopyridine 100 mg tablet 100 mg PO TID PRN 6 doses #6 tabs 05/13/25 (Pyridium) Allergies Allergy/AdvReac Type Severity Reaction Status Date / Time cat dander Allergy Severe unknown Unverified 05/13/25 18:04 cigarette smoke Allergy Severe unknown Unverified 05/13/25 18:04 grass pollen Allergy Severe unknown Unverified 05/13/25 18:04 house dust mite Allergy Severe unknown Unverified 05/13/25 18:04 perfume Allergy Severe unknown Unverified 05/13/25 18:04 duloxetine (From Cymbalta) Allergy Intermediate unknown Unverified 05/13/25 18:04 feathers Allergy Unknown Verified 05/13/25 18:04 mold Allergy unknown Verified 05/13/25 18:04 dust mites Allergy Unknown Uncoded 05/13/25 18:04 General GABE: 3 Exam Narrative Exam Narrative: Const: Obese female in NAD. VS per triage. HEENT: NC/AT. Normal facial exam. Neck: Supple. Trachea midline. Lungs: Normal respiratory effort. Lungs are clear. Cor: RRR without murmur. Good radial pulses. GI: Soft/ND/NT. Back: No CVAT. Neuro: A+O x 3. Normal speech, mentation, gait. Cranial nerves II - XII grossly intact. Strength and sensation in LE normal. Medical Decision Making Patient presenting to ED with urinary symptoms that include dysuria, frequency, in the last 24 hours some urinary incontinence though not consistently. She reports having dysuria and urgency for 3 to 4 months now. She does not have any abdominal pain unless she is urinating. She denies fever or back pain. She denies vomiting or diarrhea. She has no abdominal pain with bowel movements. She is eating and drinking normally. Abdominal exam is completely benign. She is neurologically intact and reports normal sensation to the perineum. I do not think this is an acute intra-abdominal process nor do I feel that this is related to cauda equina. Potentially related to UTI which is why patient came in. Potentially related to pelvic floor dysfunction, interstitial cystitis. Laboratory studies done here on the showed normal kidney function. Will check a urinalysis. Urinalysis with some trace blood otherwise negative. There is no evidence of infection. Patient reports having follow-up with primary care this coming week. She likely is going to require referral to urology given that symptoms have been progressively worsening over 3 to 4 months, now having some incontinence. Discussed trying Pyridium over the weekend to see if it will help with the dysuria and urgency. Patient to then follow-up with primary care and discuss referral to urology. Return precautions provided. Medical Records Medical records reviewed: Yes I reviewed the patient's medical records. Medical records narrative: [facility] Lab Data Lab results reviewed: Yes I reviewed the patient's lab results. Lab results narrative: see [facility] All Active Problems Dysuria (Acute) Urinary incontinence (Acute) Infected dog bite of forearm (Acute) Presbylarynges (Acute) Hoarseness (Acute) Dysphonia (Acute) Medical History Post-acute COVID-19 syndrome Abdominal pain Snoring Dyspnea Edema Memory impairment Disorder of rotator cuff Disorder of intervertebral disc of lumbar spine Low back pain Neck pain Osteoarthritis of knee Osteoarthritis of hip GERD (gastroesophageal reflux disease) Severe persistent asthma Allergic rhinitis Atrial flutter Atrial fibrillation Hypertensive disorder Chronic pain syndrome Depressive disorder PTSD (post-traumatic stress disorder) Acute stress disorder Anxiety disorder Morbid obesity Hypercholesterolemia Vitamin D deficiency Diabetic peripheral neuropathy Type II diabetes mellitus Surgical History H/O foot surgery right 1982 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
[2025-05-13 18:09] VITALS: BP 139/67; PULSE 94; RESP 18; TEMP 36.2; O2SAT 96
[2025-05-13 20:04] LABS: Glucose 500 mg/dL (Negative)
[2025-05-13 20:14] LABS: C & S Indicated? No; WBC Negative HPF (0-5)
[2025-05-13 20:36] VITALS: BP 110/74; PULSE 92; RESP 18; O2SAT 99
== END 2025-05-13 21:35 | disposition home or self-care (01) ==
PROVIDERS: Emergency Provider Emergency Medicine; PCP Nurse Practitioner Adult Health
DX: R30.0 Dysuria (principal); R32 Unspecified urinary incontinence
CPT/HCPCS: 99283 ×2; 81003; 81015